=== PATIENT | male | born 2000 | race Caucasian/White ===

== ENCOUNTER 2019-11-16 19:50 | Emergency (ER) | payer MEDICAID, SELFPAY ==
[~2019-11-16] VITALS: Ht 170.2 cm; Wt 77.1 kg
[2019-11-16 21:58] VITALS: Ht 170.2 cm; Wt 77.1 kg
[2019-11-16 23:15] VITALS: BP 143/88
== END 2019-11-16 23:17 | disposition home or self-care (01) ==
LOC: ED 19:50
DX: Z20.828 Contact with and (suspected) exposure to other viral communicable diseases (principal)
CPT/HCPCS: U0003-CS